=== PATIENT | male | born 1975 | race Caucasian/White ===

== ENCOUNTER 2016-11-14 10:25 | Emergency (ER) ==
[2016-11-14] MEDS ORDERED: ASPIRIN PO ONE (10:48)
[2016-11-14] MEDS ORDERED: ASPIRIN PO STA (10:50)
--- NOTE | 2016-11-14 10:54 | PROVIDER DOCUMENTATION ---
HPI-General Adult - General Source: patient - History of Present Illness -Gen Adult Nature of Presenting Problems: 41 YOWM PRESENTS TO ED WITH C/O PT STATES HE WAS AT [facility] THIS MORNING, AND BECAME SOB AND DIAPHORETIC AND TACHYCARDIC, WAS SENT TO ED FROM [place]. PT PRESENTS DRY AND TACHY AT [address] Location of Pain/Injury: reports: none Pain Radiation: reports: no radiation Quality of Pain: reports: none Severity: reports: moderate Onset/Duration: reports: just prior to arrival Timing: reports: still present Context/Activities at Onset: reports: light activity Modifying Factors: improves with: nothing Associated Symptoms: reports: shortness of breath Similar Symptoms Previously?: No Recently seen or treated by another doctor?: No <Devon Cedeño - Last Filed: 11/14/16 13:35> <Chava Gordon - Last Filed: 11/14/16 14:28> - General Chief Complaint: General Adult Stated Complaint: SOB/HIGH HEART RATE Time Seen by Provider: 11/14/16 10:39 Allergies/Adverse Reactions: Patient Allergies Allergy/AdvReac Type Severity Reaction Status Date / Time No Known Allergies Allergy Verified 10/30/15 16:22 Home Medications: Home Medication List Medication Instructions Recorded Confirmed Last Taken Type Aspirin EC 81 mg PO DAILY 09/21/12 10/30/15 11/23/14 07:00 History Lisinopril/Hydrochlorothiazide 1 each PO QAM 09/21/12 10/30/15 11/23/14 07:00 History [Lisinopril-Hctz 20-25 mg Tab] Sertraline HCl [Zoloft] 200 mg PO DAILY 10/02/13 10/30/15 11/23/14 07:00 History Bupropion [Wellbutrin] 150 mg PO QAM 11/23/14 10/30/15 11/23/14 07:00 History Risperidone [Risperdal] 4 mg PO BID 11/23/14 10/30/15 11/23/14 07:00 History Insulin Glargine [Lantus] 39 units SQ HS 11/14/16 11/14/16 Unknown History Metformin [Glucophage] 2,500 mg PO DAILY 11/14/16 11/14/16 Unknown History Review of Systems - Adult - REVIEW OF SYSTEMS - ADULT Constitutional: denies: chills, fever Eyes: reports: no symptoms reported Ears, Nose, Mouth & Throat: reports: no symptoms reported Cardiovascular: denies: chest pain, palpitations, syncope Respiratory: reports: shortness of breath. denies: cough, wheezing Gastrointestinal: denies: abdominal pain, nausea, vomiting Genitourinary: reports: no symptoms reported Musculoskeletal: denies: back pain, neck pain Integumentary: reports: no symptoms reported Neurological: denies: dizziness/vertigo, headache/migraines, syncope Psychiatric: reports: no symptoms reported Endocrine: reports: no symptoms reported Hematologic/Lymphatic: reports: no symptoms reported Allergic/Immunologic: reports: no symptoms reported All Other Systems: Reviewed and Negative <Devon Cedeño - Last Filed: 11/14/16 13:35> Past History - Adult - PAST MEDICAL HISTORY-ADULT Review of Records: reports: Nursing Assessment Review, Medications Reviewed Cardiovascular: reports: HTN, hyperlipidemia Gastrointestinal: reports: GERD Psychiatric: reports: depression, psychiatric problems (psychosis) Endocrine/Immune: reports: Diabetes - PRIOR SURGERIES/PROCEDURES Surgical/Procedure History: reports: none - IMMUNIZATION STATUS Childhood Immunizations: See Nurse Assessment Flu Vaccine: See Nurse Assessment - FAMILY HISTORY Family History: reviewed, not pertinent - SOCIAL HISTORY Smoking: cigarettes, greater than 1 pack/day Provider spent 3-5 mins advising pt. on dangers of tobacco.: Discussed manners to quit use, and f/u contacts for add'l counseling. Substance Use: denies Alcohol Use Frequency: never Living Situation: family <Devon Cedeño - Last Filed: 11/14/16 13:35> Physical Exam-General - CONSTITUTIONAL General Appearance: alert, mild distress - EYES Eyes: PERRL/EOMI, pink conjunctivae - HEAD, EARS, NOSE, MOUTH & THROAT HENMT: normocephalic/atraumatic, moist mucous membranes - NECK Neck: non-tender, full range of motion, supple - RESPIRATORY Respiratory: chest non-tender, lungs clear, normal breath sounds - CARDIOVASCULAR Cardiovascular: normal peripheral pulses, tachycardia - GASTROINTESTINAL (ABDOMEN) Abdominal Exam: normal bowel sounds, non tender, soft - LYMPHATIC Lymphatic: no adenopathy - MUSCULOSKELETAL Back Exam: normal inspection, no CVA tenderness, no vertebral tenderness Extremity: normal range of motion, non-tender - SKIN Integumentary: normal color, normal turgor, warm/dry - NEUROLOGIC Neurologic: grossly normal - PSYCHIATRIC Psych/Mental Status: oriented x 3 <Devon Cedeño - Last Filed: 11/14/16 13:35> Progress - PLAN OF CARE/RESULTS Progress/Plan/Lab Results: Laboratory Tests 11/14/16 11/14/16 11/14/16 11:04 11:04 11:04 WBC RBC Hgb Hct MCV MCH MCHC RDW Std Deviation Plt Count MPV Immature Gran % (Auto) Neut % (Auto) Lymph % (Auto) [place] % (Auto) Eos % (Auto) Baso % (Auto) Immature Gran # (Auto) Neut # (Auto) Lymph # (Auto) [place] # (Auto) Eos # (Auto) Baso # (Auto) PT INR APTT (Factor Assay) D-Dimer Sodium 129 L Potassium 4.0 Chloride 93 L Carbon Dioxide 25 Anion Gap 11 BUN 18 Creatinine 0.9 Estimated GFR/1.73 m2 > 60 BUN/Creatinine Ratio 20 Glucose 341 H Calculated Osmolality 274 Calcium 9.6 Magnesium 1.8 Total Bilirubin 0.70 AST 34 ALT 53 H Alkaline Phosphatase 58 Creatine Kinase 72 Troponin T < 0.010 Ojh-[id number]-Pwoxqrhcpei Pept Total Protein 7.4 Albumin 4.4 Globulin 3.0 Albumin/Globulin Ratio 1.0 TSH 3.08 11/14/16 11/14/16 11/14/16 11:04 11:04 11:04 WBC 5.61 RBC 5.07 Hgb 12.8 L Hct 38.7 L MCV 76.3 L MCH 25.2 L MCHC 33.1 RDW Std Deviation 14.3 Plt Count 123 L MPV 10.8 H Immature Gran % (Auto) 0.2 Neut % (Auto) 60.1 Lymph % (Auto) 32.3 [place] % (Auto) 5.3 Eos % (Auto) 1.6 Baso % (Auto) 0.5 Immature Gran # (Auto) 0.01 Neut # (Auto) 3.37 Lymph # (Auto) 1.81 [place] # (Auto) 0.30 Eos # (Auto) 0.09 Baso # (Auto) 0.03 PT 13.8 INR 1.03 APTT (Factor Assay) 28.1 D-Dimer < 0.22 L Sodium Potassium Chloride Carbon Dioxide Anion Gap BUN Creatinine Estimated GFR/1.73 m2 BUN/Creatinine Ratio Glucose Calculated Osmolality Calcium Magnesium Total Bilirubin AST ALT Alkaline Phosphatase Creatine Kinase Troponin T [id number] Pept < 5 L Total Protein Albumin Globulin Albumin/Globulin Ratio TSH Orders Category Date Time Status Cardiac Monitoring DIRECTED Care 11/14/16 10:50 Active FSBS/Accucheck Result NOW Care 11/14/16 13:34 Active Oxygen Therapy- ED Nursing DIRECTED Care 11/14/16 10:50 Active Saline Loc NOW Care 11/14/16 10:50 Active CHEST-2 VIEWS [RAD] Stat Exams 11/14/16 10:48 Draft CBC WITH ELECTRONIC DIFF [HEME] Stat Lab 11/14/16 11:04 Completed CK PROFILE [SP CHEM] Stat Lab 11/14/16 11:04 Completed COMPREHENSIVE METABOLIC PANEL [CHEM] Stat Lab 11/14/16 11:[address] D-DIMER [address] [COAG] Stat Lab 11/14/16 11:04 Completed MAGNESIUM [CHEM] Stat Lab 11/14/16 11:04 Completed PRO B-NATRIURETIC PEPTIDE Stat Lab 11/14/16 11:04 Completed PROTIME WITH INR PL [COAG] Stat Lab 11/14/16 11:[address] [COAG] Stat Lab 11/14/16 11:04 Completed TROPONIN T Stat Lab 11/14/16 11:04 Completed TSH Stat Lab 11/14/16 11:04 Completed 0.9% Sodium Chloride Inj [Ns] 1,000 ml Med 11/14/16 12:23 Discontinued IV 999 mls/hr Aspirin Med 11/14/16 10:48 Discontinued 325 mg PO NOW ONE Aspirin Med 11/14/16 10:50 Discontinued 325 mg PO STAT STA Insulin Human Reg Dose ([address] [Humulin R Dose ([place] Med 11/14/16 12:44 Discontinued )] 5 dose .ROUTE .STK-MED ONE Insulin Human Regular [Humulin R] Med 11/14/16 12:23 Discontinued 5 unit IV NOW ONE Pulse Oximetry Stat Oth 11/14/16 10:48 Active EKG [EKG] Stat Ther 11/14/16 10:50 Ordered Vital Signs - 24 hr 11/14/16 10:29 Temperature 98 F Pulse Rate 127 H Respiratory 20 Rate Blood Pressure 151/81 O2 Sat by Pulse 98 Oximetry - EKG 1 Time of EKG reading by physician:: 11:00 EKG Read and Signed by:: Chava T. Gordon EKG Interpretation (*Must complete 3 of following elements*): Abnormal Rate: 117 Rhythm: SINUS TACHYCARDIA Platinum: normal QRS: normal ME Interval: normal ST Wave: normal - XRAY 1 XRAY: Bilateral XRAY Study: Chest XRAY Interpretation: NAD. SCATTERED LINEAR ATELECASIS THROUGHOUT THE LUNGS. <Devon Cedeño - Last Filed: 11/14/16 13:35> - REASSESSMENT Reassessment #1 Reassessment Comment: after correction for hyperglycemia, Na is 133-135. <Chava Gordon - Last Filed: 11/14/16 14:28> Departure <Devon Cedeño - Last Filed: 11/14/16 13:35> - Departure Time of Disposition Order: 14:23 Certified Medical Emergency: Emergent <Chava Gordon - Last Filed: 11/14/16 14:28> - Departure DIAGNOSIS: Tachycardia, Hyperglycemia Disposition: HOME 01 Condition: Good Additional Instructions: ED Follow Up Instructions: You have been treated by a care provider in the Emergency Department. These instructions are being provided to you so you can have an understanding of how to care for yourself upon discharge. Upon discharge from the Emergency Department, you are responsible for making arrangements for follow-up care by a physician of your choice. Take all prescribed medications as directed. Return to the Emergency Department immediately for any new or worsening symptoms. You may call the Physician Referral phone number at [phone] to obtain a list of Physicians who are taking new patients. Instructions: Nonspecific Tachycardia Attestation - Scribe Verification/Attestation Scribe:: Devon Cedeño Acting as Scribe for:: Chava Gordon Scribe documention review:: This chart was documented by a scribe and accurately reflects the service the provider performed and the decisions made by the provider. <Devon Cedeño - Last Filed: 11/14/16 13:35> Physician Attestation - Physician Attestation I, the provider, attest to the following statement:: Chava Gordon Physician documentation Attestation:: This documentation recorded by the scribe accurately reflects the service I personally performed and the decisions made by me. <Chava Gordon - Last Filed: 11/14/16 14:28>
[2016-11-14 11:05] LABS: MANUAL DIFF NEEDED? NO
[2016-11-14 11:07] LABS: BASO% 0.5 % (0.0-0.8); EOS# 0.09 X1000 (0.0-0.7); EOS% 1.6 % (0.0-10.0); HEMATOCRIT 38.7 % (42.0-52.0); HEMOGLOBIN 12.8 g/dL (14.0-18.0); IMM GRAN# 0.01 X1000 (0.0-0.04); IMM GRAN% 0.2 % (0.0-0.5); LYMPH# 1.81 X1000 (1.2-3.4); LYMPH% 32.3 % (20.5-51.1); MCH 25.2 PG (27-31); MCHC 33.1 g/dL (33-37); MCV 76.3 FL (81-99); MONO% 5.3 % (1.7-9.3); MPV 10.8 FL (7.4-10.4); NEUT% 60.1 % (42.2-75.2); PLT 123 X1000 (130-400); RBC 5.07 XMIL (4.7-6.1)
[2016-11-14 11:23] LABS: AGAP 11; ALBUMIN 4.4 g/dL (3.5-5.0); ALKALINE PHOSPHATASE 58 U/L (32-122); BUN 18 mg/dL (8-22); CALCIUM 9.6 mg/dL (8.8-10.2); CHLORIDE 93 mmol/L (98-107); CK PROFILE 72 U/L (24-204); COSMO 274; GOT 34 U/L (10-34); GPT 53 U/L (10-44); MAGNESIUM 1.8 mg/dL (1.5-2.7); SODIUM 129 mmol/L (136-145); TCO2 25 mmol/L (25-35); TOTAL PROTEIN 7.4 g/dL (6.3-8.3)
[2016-11-14 11:27] LABS: INR 1.03 (0.86-1.15); PROTIME 13.8 Seconds (12.1-15.5)
[2016-11-14 11:28] LABS: PTT PL 28.1 Seconds (22.6-43.9)
--- NOTE | 2016-11-14 11:56 | Diag Imaging Result Document ---
PROCEDURE NAME: CHEST-2 VIEWS - 11/14/2016 CHEST X-RAY, 2 VIEWS: COMPARISON: 10/30/2015. FINDINGS: There is some scattered linear atelectasis throughout the lungs. Otherwise, no focal infiltrates, pneumothorax, or pleural effusion. Heart size is top normal. Pulmonary vascularity is top normal. IMPRESSION: No acute disease. Scattered linear atelectasis throughout the lungs.
[2016-11-14] MEDS ORDERED: HUMULIN R IV ONE (12:23)
[2016-11-14] MEDS ORDERED: NS 1,000 ML IV ONE (12:23)
[2016-11-14] MEDS ORDERED: HUMULIN R DOSE (PARKWAY) ONE (12:44)
[2016-11-14 14:13] VITALS: BP 136/85
== END 2016-11-14 14:37 | disposition home or self-care (01) ==
LOC: P.ED 10:25
DX: R73.9 Hyperglycemia, unspecified (principal); R00.0 Tachycardia, unspecified; R94.31 Abnormal electrocardiogram [ECG] [EKG]; R06.02 Shortness of breath; R61 Generalized hyperhidrosis; I10 Essential (primary) hypertension; E78.5 Hyperlipidemia, unspecified; F32.9 Major depressive disorder, single episode, unspecified; Z79.899 Other long term (current) drug therapy; F17.210 Nicotine dependence, cigarettes, uncomplicated; Z79.82 Long term (current) use of aspirin; Z71.6 Tobacco abuse counseling
CPT/HCPCS: 71020; 80053; 82550; 82948; 83735; 83880; 84443; 84484; 85025; 85379; 85610; 85730; 93005; J1815; J7030